=== PATIENT | male | born 1955 | race Caucasian/White ===

== ENCOUNTER 2021-10-04 08:32 | Day surgery (SDC) | payer OTHER ==
[2021-09-30 14:27] LABS: Absolute Lymphocytes (CBC) 1.6 K/uL (0.7-4.9); Hematocrit 39.5 % (39.6-49.0); Lymphocytes % 21.7 % (15.3-44.8); MPV 7.3 fL (7.6-11.3); RBC Red Blood Cell Count 4.66 M/uL (4.33-5.43)
[2021-09-30 14:42] LABS: Potassium 4.2 mmol/L (3.5-5.1)
--- NOTE | 2021-09-30 15:22 | RAD REPORT ---
EXAM DESCRIPTION: RAD - Chest Pa And Lat (2 Views) - 09/30/2021 2:26 pm CLINICAL HISTORY: PRE PROCEDURE SCREENING, preop examination pending hernia repair, hypertension, di abetes COMPARISON: None TECHNIQUE: Frontal and lateral views of the chest were obtained. FINDINGS: The lungs are clear of infiltrate or suspicious mass. No failure or volume overload. Small granuloma lower left lung field. Heart size is normal and central vasculature is within normal foreman its. No pleural effusion or pneumothorax seen. No acute bony finding noted. No aortic abnormality. IMPRESSION: No acute cardiopulmonary process.
--- NOTE | 2021-10-01 11:33 | EKG ---
Test Date: 2021-09-30 Test Time: 14:06:16 Ticket Clerk: CMAR MEASUREMENT RESULTS: Intervals: Rate: 67 AL: 244 QRSD: 82 QT: 372 QTc: 393 [place]: P: 34 AL: 244 QRS: 20 T: 36 INTERPRETIVE STATEMENTS: Sinus rhythm with 1st degree AV block Otherwise normal ECG No previous ECG available for comparison Electronically Signed On 10-01-21 11:29:14 MOTOR BOSS by Souleymane Gomes
[2021-10-04] MEDS ORDERED: NA CHLORIDE 0.9% 1,000 ML ONE (08:51)
[2021-10-04] MEDS ORDERED: CEFAZOLIN SODIUM 1 GM/VIAL ONE (08:51)
[2021-10-04] MEDS ORDERED: FENTANYL CITR 100 MCG/2 ML ONE (10:21)
[2021-10-04] MEDS ORDERED: propofoL 200 MG/20 ML VIAL IV ONE (10:21)
[2021-10-04] MEDS ORDERED: MIDAZOLAM HCL 2 MG/2 ML INJ ONE (10:21)
[2021-10-04] MEDS ORDERED: LIDOCAINE 2% MPF 5 ML VIAL ONE (10:21)
[2021-10-04] MEDS ORDERED: ROCURONIUM 50 MG/5 ML VIAL IV ONE ×2 (10:21→11:36)
[2021-10-04] MEDS ORDERED: dexAMETHasone 10 MG/ML VIAL ONE (10:21)
[2021-10-04] MEDS ORDERED: ONDANSETRON 4 MG/2 ML VIAL ONE (10:27)
[2021-10-04] MEDS ORDERED: ACETAMINOPHEN 500 MG TAB ONE (10:37)
[2021-10-04] MEDS ORDERED: EPHEDRINE SULF 50 MG/ML VIAL ONE (11:30)
[2021-10-04] MEDS ORDERED: KETOROLAC 30 MG/ML INJ ONE (11:38)
[2021-10-04] MEDS ORDERED: GLYCOPYRROLATE 0.2 MG/ML SYR ONE (11:46)
[2021-10-04] MEDS ORDERED: NEOSTIGMINE 1 MG/ML -5 ML ONE (11:47)
[2021-10-04] MEDS ORDERED: SUGAMMADEX SODIUM 200 MG/2 ML VIAL IV ONE (11:53)
--- NOTE | 2021-10-04 11:54 | P.BOP ---
Preoperative diagnosis: tender left inguinal hernia Postoperative diagnosis: same Primary procedure: Laparoscopic repair of tender left inguinal hernia with mesh Estimated blood loss: <10cc Specimen: none Findings: LIH Anesthesia: General Complications: None Implants: large 3d mesh Fluids & blood products: no blood Transferred to: Recovery Room Condition: Good
[2021-10-04] MEDS ORDERED: Ringers Lactate 1,000 ML IV ONE (12:09)
[2021-10-04 13:24] VITALS: BP 145/61; TEMP 96; O2SAT 97
--- NOTE | 2021-10-05 02:17 | OP ---
Date of Procedure: 10/04/2021 Surgeon: Roc Golden MD Preoperative Diagnosis: Tender left inguinal hernia. Postoperative Diagnosis: Tender left inguinal hernia. Procedure: Laparoscopic repair of tender left inguinal hernia with mesh. Specimen: None. Estimated Blood Loss: Less than 10 cc. Anesthesia: General plus local. Implant: A large 3D mesh. Indications: This is a case of a male, who comes to us with a tender left inguinal hernia. Benefits , alternatives, and risks of laparoscopic repair versus open left inguinal hernia with mesh fully exp lained, which include, but not limited to infection, bleeding, damage to adjacent structures, anesthe debi complications, chronic pain, chronic numbness, recurrence, VA, and even . He also understan ds this may not relieve any symptoms. He might need more than one surgical intervention. He also un derstands we will use mesh in that case. Pros and cons of mesh placement were discussed with the pat ient. All the questions were answered to his satisfaction and he did consent for the procedure with mesh. The patient has selected [facility] as a surgery center of choice after allowed to select hospitals of the area. Procedure In Detail: The patient was brought to the operating room and placed in supine position. A nesthesia was done without complication. A time-out was called. Left inguinal region and abdomen we re prepped and draped in sterile fashion. A small incision was made in the infraumbilical region unt il we find the external rectus sheath, which was opened on the left side. The muscle was retracted l aterally to expose the posterior rectus sheath. The extraperitoneal space was developed gently with the help of blunt dissection and a Spacemaker blunt tip trocar was placed in that area, directed towa rds the pubis symphysis. The scope was placed in that area and the balloon was inflated under direct visualization to create the extraperitoneal space. After doing that, the balloon was deflated and r emoved. We insufflated the area. Under direct visualization, we proceeded to place a 5 mm trocar at the area of the pubis symphysis and another one fpc between the first and the second one. The p reperitoneal space was gently developed by exposing the inferior epigastric vessels keeping them ante rior. Johnson's ligament was dissected laterally to the junction to the iliac veins. The dissection was continued inferiorly to the iliopubic tract avoiding damage to the femoral branch of the genitofe moral nerve and lateral femoral cutaneous nerve. The cord structures were carefully skeletonized. W francesca noticed this hernia sac present. We proceeded to carefully dissect the hernia sac from the spermat ic cord after we had skeletonized the spermatic cord and protected at all times. After that, I proce eded to bring a large mesh in the working space to cover direct and indirect spaces. The mesh was se cured in place lateral and superior to the iliopubic tract and inferior and medial to the Johnson's li gaments with the help of SorbaFix fixation device. We checked for hemostasis. No bleeding. At that moment, I proceeded to allow the air to escape from the area, while holding the mesh gently in place and making sure the hernia sac is still reduced into the peritoneum. The trocars were removed. The anterior rectus sheath was closed with #1 Vicryl and the skin was approximated with albertina. Sponge counts and instrument counts were correct. The patient tolerated the procedure well. The patient w as sent to Recovery in stable condition. PARAG/FRED Voice ID: [id number] Report ID: [id number]
--- NOTE | 2021-10-05 02:23 | DS ---
Date of Discharge: 10/04/2021 Diagnosis: Tender left inguinal hernia. Procedure: Laparoscopic repair of tender left inguinal hernia with mesh. Disposition: Home. Activity: As tolerated. No heavy lifting. Followup: Follow up in my office in 1 week. Call for appointment at [phone]. Keep area dry for 48 hours. Cold compress to the left inguinal region. For his convenience, the prescription was called in advance, but the information that we have in our office that he has no known drug allergies. Today, I remember he has sulfa allergy, so we advised hi m do not take the sulfa medication prescribed previously. He has not taken it yet. He has not picke d up in the pharmacy yet as per family. We can call substitute that for a non-sulfa drugs and also a Tylenol No. 3. PARAG/FRED Voice ID: [id number] Report ID: [id number]
== END 2021-10-04 13:08 | disposition home or self-care (01) ==
LOC: OR 08:32
PROVIDERS: ATTEND Surgery
PROC: 0YU64JZ Supplement Left Inguinal Region with Synthetic Substitute, Percutaneous Endoscopic Approach (ICD-10-PCS; principal; 2021-10-04 10:30)
DX: K40.90 Unilateral inguinal hernia, without obstruction or gangrene, not specified as recurrent (principal); Z20.822 Contact with and (suspected) exposure to COVID-19
CPT/HCPCS: 93005; 85025; 80048; 36415; 82947; 71046; 49650; U0003; J2704; J2250; J3010; J1100; J2710; J7120; J7030; J2405; J0690

== ENCOUNTER 2024-01-09 07:51 | Day surgery (SDC) | payer OTHER ==
[2023-12-26 10:33] LABS: Anion Gap 7.8 mEq/L (5.0-15.0); Potassium 3.8 mEq/L (3.5-5.1)
[2023-12-26 10:37] LABS: Absolute Basophils 0.1 K/uL (0-0.5); Absolute Eosinophils 0.3 K/uL (0-0.5); Absolute Lymphocytes (CBC) 1.1 K/uL (0.7-4.9); Absolute Monocytes 0.5 K/uL (0.1-1.3); Absolute Neutrophil 6.5 K/uL (1.8-8.0); Basophils % 0.8 % (0-1.3); Eosinophils % 3.7 % (0-4.4); Hematocrit 36.6 % (39.6-49.0); Hemoglobin 12.4 g/dL (13.6-17.9); Lymphocytes % 12.7 % (15.3-44.8); MCH 29.3 pg (27.0-35.0); MCV 86.3 fL (80-100); MPV 7.4 fL (7.6-11.3); Monocytes % 5.7 % (3.3-12.3); Neutrophils % 77.1 % (41.7-73.7); Nucleated Red Blood Cells % 0.1 % (0-0); Platelets 292 thou/uL (152-406); RBC Red Blood Cell Count 4.24 M/uL (4.33-5.43); Red Cell Distribution Width 13.7 % (12.1-15.2)
[2023-12-26 10:38] LABS: PT Prothrombin Time 11.7 SECONDS (9.5-12.5); Protime INR 1.07
--- NOTE | 2023-12-26 12:48 | RAD REPORT ---
EXAM DESCRIPTION: RAD - Chest Pa And Lat (2 Views) - 12/26/2023 10:27 am CLINICAL HISTORY: Pre op pending kidney stone surgery. Hypertension COMPARISON: Abdomen 1 View (KUB) dated 03/03/2023; Chest Pa And Lat (2 Views) dated 09/30/2021 TECHNIQUE: PA and lateral views of the chest were obtained. FINDINGS: The lungs are clear. Heart size is normal and central vasculature is within normal limits. No pleural effusion or pneumothorax seen. No acute bony finding noted. IMPRESSION: No acute cardiopulmonary process.
--- NOTE | 2023-12-29 17:04 | EKG ---
Test Date: 2023-12-26 Test Time: 09:54:50 De Icer: EDGARD MEASUREMENT RESULTS: Intervals: Rate: 62 PA: 248 QRSD: 84 QT: 374 QTc: 379 [place]: P: 38 PA: 248 QRS: 36 T: 27 INTERPRETIVE STATEMENTS: Sinus rhythm with 1st degree AV block Otherwise normal ECG Compared to ECG 09/30/2021 14:06:16 No significant changes Electronically Signed On 12-29-23 16:52:55 CDT by John Johnston
[2024-01-09] MEDS ORDERED: propofoL 200 MG/20 ML VIAL IV ONE (08:22)
[2024-01-09] MEDS ORDERED: FENTANYL CITR 100 MCG/2 ML ONE ×2 (08:22→10:48)
[2024-01-09] MEDS ORDERED: LIDOCAINE 1% MPF 5 ML VIAL ONE (08:22)
[2024-01-09] MEDS ORDERED: ONDANSETRON 4 MG/2 ML VIAL ONE (08:22)
[2024-01-09] MEDS: NA CHLORIDE 0.9% 1,000 ML ONE (08:36)
[2024-01-09] MEDS ORDERED: dexAMETHasone 10 MG/ML VIAL ONE (09:27)
[2024-01-09] MEDS: Gentamicin Inj 240 MG in NA CHLORIDE 0.9% 100 ML IVPB SCH (09:40)
[2024-01-09] MEDS ORDERED: SUCCINYLCHOLINE 20 MG/ML (10 ML) IV ONE (10:04)
[2024-01-09] MEDS ORDERED: FAMOTIDINE 20 MG/2 ML VIAL IV ONE (10:04)
[2024-01-09] MEDS ORDERED: ROCURONIUM 50 MG/5 ML VIAL IV ONE (10:06)
[2024-01-09] MEDS ORDERED: HYDROCODONE/APAP 5/325 MG TAB PO PRN (10:08)
[2024-01-09] MEDS ORDERED: PHENAZOPYRIDINE 100MG TAB PO ONE ×2 (10:08→12:30)
[2024-01-09] MEDS ORDERED: NA CHLORIDE 0.9% 100 ML ONE (10:11)
[2024-01-09] MEDS: AMPICILLIN SODIUM 2 GM/VIAL VIAL ONE (10:25)
[2024-01-09] MEDS ORDERED: EPHEDRINE SULF 50 MG/ML VIAL ONE (10:35)
[2024-01-09 11:46] VITALS: TEMP 97.3
--- NOTE | 2024-01-09 11:46 | RAD REPORT ---
EXAM DESCRIPTION: RAD - Urethrocystogrphy Retrograde - 01/09/2024 11:34 am CLINICAL HISTORY: ICD N 20.0 FINDINGS: 20 fluoroscopic spot images obtained. Fluoroscopy time 1.09 minutes Right ureter was cannulated and contrast administered. Subsequently an ureteral stent was placed. Exa mination was performed by Dr Nascimento
[2024-01-09 14:22] VITALS: BP 122/43; O2SAT 97
--- NOTE | 2024-01-09 22:44 | OP ---
Surgeon: RYLAN ALVARADO Preoperative Diagnoses: 1.Bilateral nephrolithiasis. 2.History of recurrent nephrolithiasis. 3.Right flank pain. Postoperative Diagnoses: 1.Bilateral nephrolithiasis. 2.History of recurrent nephrolithiasis. 3.Right flank pain. Principal Procedure: 1.Cystoscopy with removal of foreign body from bladder. 2.Right retrograde pyelography. 3.Right ureteroscopy with pyeloscopy and laser lithotripsy. 4.Right ureteral stent placement. Indication For Procedure: Mr. Mendoza presented as a recurrent stone former with significant volume b ilateral nephrolithiasis. He had up to 9 stones on the right side with the largest 2 stones measurin g 8-9 mm each. Additional stones were smaller, likely 5-6 mm in size. As a result, he was counseled on the need for management and since these stones were not visible fluoroscopically ostensibly, uret eroscopy with laser lithotripsy was indicated. Of note, he had also been passing several stones and was having some right flank pain, indicative of possible obstruction. Procedure In Detail: The patient was consented in the preoperative holding area before being transfe rred to the operative suite where general anesthesia was induced. He was given ampicillin 2 g and ge ntamicin 240 mg IV antimicrobial prophylaxis, and pneumo boots were provided for DVT prophylaxis. He was placed in the lithotomy position, padded and secured to the table appropriately. His genitalia were prepped with Hibiclens and he was draped in standard fashion. The case was begun using a [facility] rigid cystoscope to traverse the urethra and enter the bladder. The bladder was decompressed of fluid and urine and there was noted to be an approximately 4-5 mm calculus dependent within the bladd er. As a result, I utilized the cystoscope to remove the foreign body before surveying the rest of t he bladder and confirming the absence of any papillary mucosal lesions. I then cannulated the right ureteral orifice using the tip of the Sensor wire to guide access into the ureteral orifice with a 5- Czech ureteral access catheter. Right retrograde pyelography: Using a 70:30 mixture of Omnipaque and saline, I injected the contrast mixture via the lumen of the 5 -Czech ureteral access catheter and it did propagate up the into the proximal ureter befo re entering the renal pelvis and calyces with a slight degree of pelvocaliectasis. I thus advanced a Sensor wire via the 5-Czech ureteral access catheter, coiling it within the upper pole of the kidne y before removing the 5-Czech ureteral access catheter. I then passed a dual-lumen catheter over th e Sensor wire into the mid ureter and passed a Bentson guidewire via the second lumen of the dual-lum en catheter, coiling it also within the upper pole calyces. I then removed the dual-lumen catheter a nd instead inserted a 12 x 14-Czech ureteral access sheath over the guidewire into the proximal uret er just distal to the UPJ, leaving the Sensor wire as a safety wire outside of the access catheter. I then passed the optical ureteroscope over the Bentson guidewire into the upper pole calices of the kidney and removed the Bentson guidewire. Using pressurized normal saline irrigation, the calices of the kidney were surveyed, and within the upper pole posterior calices, I observed the initial calcul us that was approximately 6-8 mm in size. I utilized a 200 nm laser fiber and power setting of 0.8 j oules and 15 hertz initially to begin to fragment the stone. I continued that fragmentation by incre asing the power to 1 joule and 15 hertz. I then surveyed into the lower pole calyceal distribution s [facility] where I ran into at least 3 additional calculi, most of which were 3 or 4 mm in size, but an ad ditional stone burden that was likely 8-9 mm in size. I fragmented these stones also using the laser fiber and ultimately increased the rate to 25 hertz in order to completely dust the stones. I then surveyed through the lower pole calyces for any additional calculi, fragmenting any other smaller zac culi as I ran across them and then back into the upper pole calyceal system where I surveyed that [facility] for additional stones. Because I had suspicion that some additional stones were not observed an d potentially hiding within the slightly aberrant calyceal distribution system, I then injected contr ast via the ureteroscope and delineated the calyceal distribution system. There was an extended bran ch off the upper pole, mid pole segment that I was able to navigate the scope into fluoroscopically a nd ultimately encountered an additional stone that was approximately 8 mm in diameter. I again utili zed laser fiber to fragment this into dust smaller than the size of the laser fiber before again surv eying each of the calices and ensuring no additional significant stone fragments. I then surveyed do wn into the renal pelvis and into the proximal ureter before progressing down into the mid and distal ureter, retracting the ureteral access sheath as I went, before ultimately removing the flexible ure teroscope. I then replaced the Bentson guidewire and the obturator for the ureteral access sheath an d advanced it all the way into the renal pelvis and essentially irrigated the renal pelvis with a dil capitan grande contrast mixture and allowing it to decompress by removing the obturator via the access sheath an d try to get rid of as much stone dust as possible. I then removed the ureteral access sheath in its entirety and backloaded the cystoscope over the indwelling safety wire. I passed a 6-Czech x 26 cm double-J ureteral stent over that wire, coiling it within the upper pole calyceal distribution syste m with an additional coil visible cystoscopically in his bladder. I then decompressed his bladder of fluid and urine before taking the patient out of the lithotomy position. He was then awakened from general anesthesia before being transferred to a stretcher, and then he was transferred to the [facility] room in good condition. Complications: None. Discharge Disposition: The patient should strain his urine for any stone dust and bring it with him to the office for chemical analysis. He would benefit from a metabolic stone profile assessment repe at given the multiple stone fragments that were soft and potentially either uric acid or calcium oxal ate dihydrate in composition. As far as the left stone burden is concerned, since many of those calc chato may not be formed for definitive passage and may simply be Jordan plaques, we may defer on addit ional management of that at this time unless they are visible fluoroscopically. That is the left aggie e, I was referring to. Also, the patient will require cystoscopy and right ureteral stent extraction in the office, which can be planned within the next 2-4 weeks. RILEY/MODL Voice ID: [id number] Report ID: [id number]
== END 2024-01-09 12:52 | disposition home or self-care (01) ==
LOC: OR 07:51
PROVIDERS: ATTEND Urology
PROC: 0T7B8DZ Dilation of Bladder with Intraluminal Device, Via Natural or Artificial Opening Endoscopic (ICD-10-PCS; 2024-01-09)
PROC: 0TC68ZZ Extirpation of Matter from Right Ureter, Via Natural or Artificial Opening Endoscopic (ICD-10-PCS; principal; 2024-01-09 09:15)
DX: N20.0 Calculus of kidney (principal); R82.992 Hyperoxaluria; R82.991 Hypocitraturia; R82.993 Hyperuricosuria; R10.9 Unspecified abdominal pain; I10 Essential (primary) hypertension; E78.00 Pure hypercholesterolemia, unspecified
CPT/HCPCS: 52310; 52356; 93005; 87088; 85025; 87086; 80048; 36415; 85610; 82947 ×2; 71046; 74450; 51610; J2704; J2001; J1580; J3010 ×2; J1100; J2405; J0290; J7030